=== PATIENT | female | born 1960 | race Caucasian/White ===

== ENCOUNTER 2019-10-22 19:47 | Emergency (ER) | payer BC ==
[2019-10-22] MEDS ORDERED: KETOROLAC 30 MG/ML VIAL IVP ONE (19:57)
[2019-10-22] MEDS ORDERED: METOCLOPRAMIDE HCL 10 MG/2 ML VIAL IVP ONE (19:57)
[2019-10-22] MEDS ORDERED: DIPHENHYDRAMINE HCL 50 MG/ML VIAL IVP ONE (19:57)
[2019-10-22] MEDS ORDERED: 0.9 % SODIUM CHLORIDE 1000ML 1,000 ML IV SCH (20:00)
--- NOTE | 2019-10-22 20:09 | Emergency Department Record ---
History of Present Illness - General Chief Complaint: Headache Migraine Stated Complaint: CHAVEZ,NECK PAIN,JAW PAIN Time Seen by Provider: 10/22/19 19:48 Source: Patient Mode of Arrival: Ambulatory Limitations: No limitations - History of Present Illness Initial Comments: 59 yo female presents to ED for evaluation of a sudden-onset headache that began approximately 15 minutes ago. Patient reports her symptoms began following an episode of diarrhea nausea, and vomiting symptoms. Patient does report similar symptoms 4 days ago that improved, reports that she felt well throughout the day until her symptoms returned just prior to arrival. patient denies use of anticoagulation medications, does report a history of migraine headaches that were not as severe. Patient denies fevers, neck stiffness, or recent trauma/injury. MD Complaint: Headache Onset/Timin -: Minutes(s) Onset Description: Sudden Location: Frontal Severity: Severe Quality: Throbbing Consistency: Constant Improves With: Nothing Worsens With: None Associated Symptoms: Nausea, Vomiting - Related Data Allergies Allergy/AdvReac Type Severity Reaction Status Date / Time Penicillins AdvReac Mild HYPERSENSIT Verified 10/22/19 20:28 IVITY Review of Systems Constitutional: Denies: Chills, Fever, Malaise, Night sweats Eyes: Denies: Eye discharge, Eye pain ENT: Denies: Congestion, Ear pain, Epistaxis Respiratory: Denies: Cough, Dyspnea Cardiovascular: Denies: Chest pain, Dyspnea on exertion Endocrine: Denies: Fatigue, Heat or cold intolerance Gastrointestinal: Reports: Diarrhea, Nausea, Vomiting. Denies: Abdominal pain Genitourinary: Denies: Incontinence, Retention Musculoskeletal: Denies: Arthralgia, Back pain, Gout, Joint swelling Skin: Denies: Bruising, Change in color Neurological: Reports: Headache. Denies: Abnormal gait, Confusion, Seizure Psychiatric: Denies: Anxiety Hematological/Lymphatic: Denies: Anemia, Blood Clots Past Medical History - SOCIAL HISTORY Smoking Status: Former smoker - RESPIRATORY Hx Respiratory Disorders: No Comment:: allergies - CARDIOVASCULAR Hx Cardio Disorders: No - NEURO Hx Neuro Disorders: Yes Hx Headaches: Yes Hx of Migraines: Yes - GI Hx GI Disorders: Yes Hx Abdominal Pain: Yes Hx Nausea/Vomiting: Yes Hx Wt Loss/Wt Gain: Yes Comment:: diarrhea - Hx Genitourinary Disorders: Yes Hx Kidney Stones: Yes - ENDOCRINE Hx Endocrine Disorders: No - MUSCULOSKELETAL Hx Musculoskeletal Disorders: Yes - PSYCH Hx Psych Problems: Yes Hx Anxiety: Yes Hx Depression: Yes - HEMATOLOGY/ONCOLOGY Hx Hematology/Oncology Disorders: No Family Medical History Hx Cancer: Mother *Cancer Comment: lung Hx Diabetes: Brother/Sister Hx Heart Disease: Father, Brother/Sister Hx HTN: Father Physical Exam - General General Appearance: Alert, Oriented x3, Cooperative, Moderate distress Limitations: No limitations - Head Head exam: Atraumatic, Normocephalic, Normal inspection Head exam detail: negative: Abrasion, Contusion, Carvajal's sign, General tenderness, Hematoma, Laceration - Eye Eye exam: Normal appearance, PERRL. negative: Conjunctival injection, Periorbital swelling, Periorbital tenderness, Scleral icterus - ENT Ear exam: negative: Auricular hematoma, Auricular trauma Nasal Exam: negative: Active bleeding, Discharge, Dried blood, Foreign body Mouth exam: negative: Drooling, Laceration, Muffled voice, Tongue elevation - Neck Neck exam: Normal inspection. negative: Meningismus, Tenderness - Respiratory Respiratory exam: Normal lung sounds bilaterally. negative: Rales, Respiratory distress, Rhonchi, Stridor - Cardiovascular Cardiovascular Exam: Normal rhythm, Normal heart sounds, Tachycardia - GI/Abdominal GI/Abdominal exam: Soft. negative: Rebound, Rigid, Tenderness - Rectal Rectal exam: Deferred - exam: Deferred - Extremities Extremities exam: Normal inspection. negative: Pedal edema, Tenderness - Back Back exam: Denies: CVA tenderness (R), CVA tenderness (L) - Neurological Neurological exam: Alert, Normal gait, Oriented X3 - Psychiatric Psychiatric exam: Normal affect, Normal mood - Skin Skin exam: Normal color. negative: Abrasion Type of lesion: negative: abrasion Course Vital Signs 10/22/19 19:52 Temperature 97.8 F Pulse Rate [ 117 H Pulse Ox Probe] Respiratory 20 Rate Blood Pressure 189/110 [Left Arm] Pulse Ox 98 - Reevaluation(s) Reevaluation #1: 10/22/19 20:43 Laboratory studies were reviewed and appear grossly unremarkable for an acute process. Patient is currently in CT at this time. Reevaluation #2: 10/22/19 21:33 CTA Head/Neck: Atheromatous changes to the aortic arch Mild stenosis (<30%) carotids bilaterally Otherwise negative CTA of the head and neck. Patient was reassessed, reports that she is feeling much imporved, rates headache symptoms at 2/10 currently. No historical or clinical suspicion of meningitis on examination, LP does not appear indicated based on my examination. No evidence for SAH on CT brain w/o contrast performed within 1-hour of the onset of symptoms as well. As a result, patient appears stable for discharge at this time with return for any reoccurrence of her symptoms. Patient and her SO are in agreement with the plan of care as discussed. Medical Decision Making - Lab Data Result diagrams: 10/22/19 20:05 10/22/19 20:05 Disposition Disposition: Discharge Clinical Impression: Headache Qualifiers: Headache type: unspecified Headache chronicity pattern: acute headache Intractability: not intractable Qualified Code(s): R51 - Headache Disposition: Home, Self-Care Condition: (2) Stable Instructions: Acute Headache (ED) Additional Instructions: Return to ED if your symptoms worsen or if you have any concerns. Follow-up with your family doctor in 3-5 days as directed. Forms: Patient Portal Access Time of Disposition: 21:43 Quality - Quality Measures Quality Measures: N/A - Blood Pressure Screening Does Patient Have Any of the Following: No Blood Pressure Classification: Pre-Hypertensive BP Reading Systolic Measurement: 136 Diastolic Measurement: 75 Screening for High Blood Pressure: < Pre-Hypertensive BP, F/U Documented > [G8950] Pre-Hypertensive Follow-up Interventions: Referral to alternative/primary care provider.
[2019-10-22 20:12] LABS: ABSOLUTE NEUTROPHIL COUNT 4.89; BASO % 0.3 % (0-6); EOS % 1.5 % (0-6); GRAN % 50.3 % (47-80); HEMOGLOBIN 13.2 gm/dl (11.6-16.0); LYMPH % 39.4 % (16-45); MEAN CELL VOLUME 88.9 fl (81-97); MEAN CORPUSCULAR HEMOGLOBIN 29.3 pg (27-33); MEAN PLATELET VOLUME 10.3 fl (7.4-10.4); MONO % 8.5 % (0-9); PLATELET COUNT 346 K/uL (130-400); RED CELL DISTRIBUTION WIDTH 14.1 % (11.5-14.5); WHITE BLOOD COUNT W/O DIFF 9.7 K/uL (4.2-12.2)
[2019-10-22 20:21] LABS: BILIRUBIN,TOTAL < 0.20 mg/dL (0.2-1.0); BLOOD UREA NITROGEN 18 mg/dL (8-23); CREATININE 0.8 mg/dL (0.5-0.9); EST GLOMERULAR FILTRATION RATE > 60 mL/min
[2019-10-22 20:22] LABS: TOTAL PROTEIN 7.3 g/dL (6.6-8.7)
[2019-10-22 20:24] LABS: GLUCOSE,RANDOM 123 mg/dL (74-109)
[2019-10-22 20:27] LABS: ALB/GLOB RATIO 1.6 (1.1-1.8); ALBUMIN 4.5 g/dL (4.0-5.0); ALKALINE PHOSPHATASE 99 U/L (35-104); ALT/SGPT 16 U/L (<33); AST/SGOT 18 U/L (10.0-35.0)
--- NOTE | 2019-10-22 21:27 | CT ANGIOGRAM REPORT ---
EXAMINATION: CT Angiogram of the Head and CT Angiogram of the Neck. EXAM DATE: 10/22/2019 9:17 PM TECHNIQUE: Standard protocol CTA imaging of the head and CTA imaging of the neck was performed with i ntravenous contrast. Three-dimensional reconstructed images were created. IV Contrast: The amount and type of contrast are recorded in the medical record. PQRI documentation: All internal carotid artery percent stenoses are calculated using the distal int ernal carotid artery diameter as the denominator (NASCET criteria). INDICATION: headache COMPARISON: None HAND DOMINANCE: Unknown. ENCOUNTER: Not applicable Noncontrast CT evaluation of the brain demonstrates no midline shift or mass effect. No acute intracr anial hemorrhage. No hydrocephalus or extra-axial hemorrhage. Intracranial vascular calcifications ar e present. CTA HEAD FINDINGS: The intracranial vertebrobasilar system is notable for a origin of the left [employer]. The anterior c ommunicating artery is diminutive but otherwise unremarkable. The anterior cerebral and middle cerebr al artery distributions are unremarkable. CTA NECK FINDINGS: Atheromatous changes present at the aortic arch. The common carotid arteries are unremarkable. Mild a theromatous changes involve the proximal internal carotid arteries with no evidence of hemodynamicall y significant stenosis. Less than 30% stenosis bilaterally. Vertebral artery origins are unremarkable . Mild degenerative changes in the inferior cervical spine. IMPRESSION: No hemodynamically significant stenosis in the neck. No vessel occlusion findings intracranially. Dictated by: Dariusz Lopez MD on 10/22/2019 9:20 PM. .
== END 2019-10-22 22:07 | disposition home or self-care (01) ==
LOC: ER 19:47
DX: R51 Headache (principal); R11.2 Nausea with vomiting, unspecified; M54.2 Cervicalgia; R19.7 Diarrhea, unspecified; Z87.891 Personal history of nicotine dependence
CPT/HCPCS: 99284 ×2; 96374; 96375; 96361; 85025; 80053; 70496; 70498; Q9967; J1885; J1200; J2765; J7030